=== PATIENT | female | born 1955 | race African-American/Black ===

== ENCOUNTER 2018-05-14 16:43 | Inpatient (IN) | payer MEDICAID ==
[~2018-05-14] VITALS: Ht 167.6 cm; Wt 111.1 kg
[~2018-05-14 16:43] MED LIST: BENAZEPRIL PO; IBUPROFEN PO; LEVOTHYROXINE PO
[2018-05-14] MEDS ORDERED: ONDANSETRON HCL 4MG/2ML INJ IV STA (17:05)
[2018-05-14 18:19] LABS: CLARITY URINE CLEAR (CLEAR); COLOR URINE YELLOW (YELLOW); KETONES URINE TRACE (NEGATIVE); LEUKOCYTE ESTERASE URINE TRACE (NEGATIVE); NITRITE URINE NEGATIVE (NEGATIVE); OCCULT BLOOD URINE NEGATIVE (NEGATIVE); PROTEIN URINE 1+ (NEGATIVE); SPECIFIC GRAVITY URINE 1.026 (1.005-1.030); UROBILINOGEN URINE 0.2 E.U./dL (0.2-1.0)
[2018-05-14 18:19] LABS: CHLORIDE 107 mEq/L (98-107); HEMATOCRIT. 40.2 % (36.0-48.0); HEMOGLOBIN. 12.6 g/dL (12.0-16.0); MEAN CORPUSCULAR HEMOGLOBIN 26.8 pg (28.0-32.0); MEAN CORPUSCULAR VOLUME 85.3 fL (81.0-99.0); MEAN PLATELET VOLUME 8.8 fl (7.4-10.4); PLATELET 656 x1000/uL (130-400); RED BLOOD CELL COUNT 4.71 mill/uL (4.2-5.4); RED CELL DISTRIBUTION WIDTH 14.5 % (11.6-14.6)
[2018-05-14 18:24] LABS: ETHANOL BLOOD < 10 mg/dL; PARTIAL THROMBOPLASTIN TIME 29.7 sec (23.4-31.0); PROTHROMBIN TIME 10.5 sec (9.1-11.1)
[2018-05-14 18:41] LABS: *AMPHETAMINES SCREEN URINE NEGATIVE (NEGATIVE); *BARBITURATES SCREEN URINE NEGATIVE (NEGATIVE); *BENZODIAZEPINES SCREEN URINE PRESUMTIVE POSITIVE (NEGATIVE)
[2018-05-14 18:42] LABS: *COCAINE SCREEN URINE NEGATIVE (NEGATIVE); CANNABINOID URINE SCREEN NEGATIVE (NEGATIVE); METHADONE URINE SCREEN NEGATIVE (NEGATIVE); OPIATES URINE SCREEN PRESUMTIVE POSITIVE (NEGATIVE); PHENCYCLIDINE URINE SCREEN NEGATIVE (NEGATIVE)
[2018-05-14 18:52] LABS: PLATELET ESTIMATE INCREASED
[2018-05-14] MEDS ORDERED: MECLIZINE 25MG TABLET PO ONE (19:45)
[2018-05-14] MEDS ORDERED: FENTANYL CITRATE/PF 50MCG/ML 2ML VIAL IV ONE (19:45)
[2018-05-14] MEDS ORDERED: CLONIDINE 0.1MG TABLET PO PRN (20:15)
[2018-05-14] MEDS ORDERED: ONDANSETRON HCL 4MG/2ML INJ IV PRN (20:15)
[2018-05-14] MEDS ORDERED: IOHEXOL-350 100 ML BOTTLE ONE (22:08)
[2018-05-14] MEDS ORDERED: CEFTRIAXONE 1 G PREMIX 50 ML IV ONE (22:15)
[2018-05-15 00:19] VITALS: BP 149/68
[2018-05-15] MEDS ORDERED: MECLIZINE 25MG TABLET PO PRN ×2 (00:25→11:30)
[2018-05-15] MEDS ORDERED: ASPI-986 PO (00:51)
[2018-05-15] MEDS ORDERED: DIAZ10TA PO (00:53)
[2018-05-15] MEDS ORDERED: HYDR-4009 PO (00:55)
[2018-05-15] MEDS ORDERED: SUMATRIPTAN SUCCINATE 6MG/0.5ML VIAL SUBCUT SCH (02:00)
[2018-05-15 04:00] VITALS: BP 134/69
[2018-05-15] MEDS ORDERED: LEVOTHYROXINE SODIUM 50MCG TABLET PO SCH (07:20)
[2018-05-15 08:00] VITALS: BP 127/69
[2018-05-15] MEDS: ACETAMINOPHEN 325MG TABLET PO PRN ×2 (08:10→15:07)
[2018-05-15] MEDS ORDERED: AMLODIPINE 5MG TABLET PO SCH (09:00)
[2018-05-15 12:00] VITALS: BP 127/67
[2018-05-15] MEDS ORDERED: GUAIFENESIN-DM 200MG-20MG/10ML UDC PO PRN (13:15)
[2018-05-15 15:21] VITALS: BP 127/67
[2018-05-15] MEDS ORDERED: FLUTICASONE PROPIONATE 50MCG/SPRAY BOTTLE BOTHNSTRLS SCH (21:00)
[2018-05-15] MEDS ORDERED: GUAIFENESIN 600MG ER TABLET PO SCH (21:00)
== END 2018-05-15 16:48 | disposition home or self-care (01) | DRG 111 ==
LOC: ER 16:43 → EDBEDREQ 19:41 → 6WST 19:59 → EDBEDREQ 20:02 → ENRESERV 23:00
PROVIDERS: ADMIT Internal Medicine; ATTEND Internal Medicine
DX: H81.10 Benign paroxysmal vertigo, unspecified ear (principal); G90.8 Other disorders of autonomic nervous system; E03.9 Hypothyroidism, unspecified; E78.00 Pure hypercholesterolemia, unspecified; I10 Essential (primary) hypertension; K21.9 Gastro-esophageal reflux disease without esophagitis; N39.0 Urinary tract infection, site not specified; Z86.73 Personal history of transient ischemic attack (TIA), and cerebral infarction without residual deficits; Z86.79 Personal history of other diseases of the circulatory system; R26.9 Unspecified abnormalities of gait and mobility
CPT/HCPCS: 36415; 70496; 71045; 80305; 83735; 83880; 84484; 86850; 86870; 86900; 93005; 93970; 96365; 96375; 97162; 99291; G0482; J0696; J2405; J3030; Q9967

== ENCOUNTER 2018-10-16 05:50 | Emergency (ER) | payer MEDICAID ==
[~2018-10-16] VITALS: Ht 170.2 cm; Wt 104.0 kg
[~2018-10-16 05:50] MED LIST changes: +ASPI-986 PO; +DIAZ10TA PO; +HYDR-4009 PO
[2018-10-16] MEDS ORDERED: ASPIRIN 81MG TABLET PO ONE (07:00)
[2018-10-16 07:27] LABS: BASOPHILS % 2.2 % (0.0-2.0); EOSINOPHILS % 6.7 % (0.0-5.0); HEMATOCRIT. 36.8 % (36.0-48.0); HEMOGLOBIN. 11.9 g/dL (12.0-16.0); MEAN CORPUSCULAR HEMOGLOBIN 26.6 pg (28.0-32.0); MEAN CORPUSCULAR VOLUME 82.6 fL (81.0-99.0); MEAN PLATELET VOLUME 8.3 fl (7.4-10.4); MONOCYTES % 13.8 % (2.0-8.0); NEUTROPHILS % 42.3 % (40.0-76.0); PLATELET 527 x1000/uL (130-400); RED BLOOD CELL COUNT 4.46 mill/uL (4.2-5.4); RED CELL DISTRIBUTION WIDTH 15.3 % (11.6-14.6)
[2018-10-16 07:31] LABS: CHLORIDE 112 mEq/L (98-107)
[2018-10-16 07:33] LABS: PROTHROMBIN TIME 10.4 sec (9.6-11.0)
[2018-10-16 11:01] VITALS: BP 158/93
== END 2018-10-16 11:06 | disposition home or self-care (01) ==
LOC: ER 05:50
DX: M79.605 Pain in left leg (principal); M79.604 Pain in right leg; R07.89 Other chest pain; R51 Headache; R05 Cough; I10 Essential (primary) hypertension
CPT/HCPCS: 36415; 71045; 83880; 84484; 93005; 93970; 99284

== ENCOUNTER 2018-12-16 00:12 | Emergency (ER) | payer MEDICAID ==
[~2018-12-16] VITALS: Ht 165.1 cm; Wt 96.0 kg
[2018-12-16] MEDS ORDERED: SODIUM CHLORIDE 0.9% 1,000 ML IV ONE (01:42)
[2018-12-16] MEDS ORDERED: DIPHENHYDRAMINE 50MG/ML VIAL IV ONE (01:45)
[2018-12-16] MEDS ORDERED: METOCLOPRAMIDE HCL 10MG/2ML VIAL IV ONE (01:45)
[2018-12-16 02:37] LABS: BASOPHILS % 1.2 % (0.0-2.0); EOSINOPHILS % 6.7 % (0.0-5.0); HEMATOCRIT. 43.4 % (36.0-48.0); HEMOGLOBIN. 13.8 g/dL (12.0-16.0); LYMPHOCYTES % 22.1 % (20.0-50.0); MEAN CORPUSCULAR HEMOGLOBIN 27.1 pg (28.0-32.0); MEAN CORPUSCULAR VOLUME 85.4 fL (81.0-99.0); MEAN PLATELET VOLUME 8.9 fl (7.4-10.4); MONOCYTES % 10.2 % (2.0-8.0); NEUTROPHILS % 59.8 % (40.0-76.0); PLATELET 475 x1000/uL (130-400); RED BLOOD CELL COUNT 5.08 mill/uL (4.2-5.4); RED CELL DISTRIBUTION WIDTH 14.5 % (11.6-14.6)
[2018-12-16 02:40] LABS: CHLORIDE 112 mEq/L (98-107)
[2018-12-16 02:42] LABS: PROTHROMBIN TIME 10.1 sec (9.6-11.0)
[2018-12-16] MEDS ORDERED: IOHEXOL-350 100 ML BOTTLE ONE (03:48)
[2018-12-16] MEDS ORDERED: ONDANSETRON 4MG ODT PO ONE (06:45)
[2018-12-16 06:48] VITALS: BP 145/80
== END 2018-12-16 06:51 | disposition home or self-care (01) ==
LOC: ER 00:12
DX: R51 Headache (principal); R42 Dizziness and giddiness; E05.90 Thyrotoxicosis, unspecified without thyrotoxic crisis or storm; Z86.79 Personal history of other diseases of the circulatory system; E78.00 Pure hypercholesterolemia, unspecified; Z79.899 Other long term (current) drug therapy
CPT/HCPCS: 36415; 70450; 70496; 80053; 85025; 85610; 96361; 96374; 96375; 99284; J1200; J2765; J7030; Q0162; Q9967; Z7610

== ENCOUNTER 2019-04-08 14:32 | Emergency (ER) | payer MEDICAID ==
[~2019-04-08] VITALS: Ht 170.2 cm; Wt 105.0 kg
[2019-04-08] MEDS ORDERED: SODIUM CHLORIDE 0.9% 1,000 ML IV ONE (15:51)
[2019-04-08 16:40] LABS: EOSINOPHILS % 7.9 % (0.0-5.0); HEMATOCRIT. 37.6 % (36.0-48.0); HEMOGLOBIN. 12.4 g/dL (12.0-16.0); MEAN CORPUSCULAR HEMOGLOBIN 27.5 pg (28.0-32.0); MEAN CORPUSCULAR VOLUME 83.5 fL (81.0-99.0); MEAN PLATELET VOLUME 8.5 fl (7.4-10.4); MONOCYTES % 12.8 % (2.0-8.0); NEUTROPHILS % 52.3 % (40.0-76.0); PLATELET 556 x1000/uL (130-400); RED CELL DISTRIBUTION WIDTH 14.4 % (11.6-14.6)
[2019-04-08 16:44] LABS: PROTHROMBIN TIME 10.2 sec (9.6-11.0)
[2019-04-08 19:49] VITALS: BP 155/88
[2019-04-08 21:17] LABS: CHLORIDE 106 mEq/L (98-107)
== END 2019-04-08 19:50 | disposition home or self-care (01) ==
LOC: ER 14:32
DX: R51 Headache (principal); I10 Essential (primary) hypertension; E78.00 Pure hypercholesterolemia, unspecified; E05.90 Thyrotoxicosis, unspecified without thyrotoxic crisis or storm; I72.9 Aneurysm of unspecified site; Z79.899 Other long term (current) drug therapy; Z98.890 Other specified postprocedural states; Z96.659 Presence of unspecified artificial knee joint
CPT/HCPCS: 36415; 70496; 80053; 85025; 85610; 96360; 96361; 99284; J7030

== ENCOUNTER 2019-06-07 02:11 | Emergency (ER) | payer MEDICAID ==
[~2019-06-07] VITALS: Ht 167.6 cm; Wt 111.0 kg
[2019-06-07 03:57] LABS: HEMOGLOBIN. 12.3 g/dL (12.0-16.0); MEAN CORPUSCULAR HEMOGLOBIN 27.1 pg (28.0-32.0); MEAN CORPUSCULAR VOLUME 83.8 fL (81.0-99.0); MEAN PLATELET VOLUME 8.4 fl (7.4-10.4); PLATELET 478 x1000/uL (130-400); RED BLOOD CELL COUNT 4.53 mill/uL (4.2-5.4)
[2019-06-07 04:02] LABS: CHLORIDE 109 mEq/L (98-107)
[2019-06-07] MEDS ORDERED: ALBUTEROL (0.083%) 2.5MG/3ML NEB HHN STA (04:15)
[2019-06-07] MEDS ORDERED: IPRATROPIUM BROMIDE (0.02%) 0.5MG/2.5ML NEB HHN STA (04:15)
[2019-06-07 07:03] VITALS: BP 135/69
[2019-06-07 07:17] LABS: ATYPICAL LYMPHOCYTES 3; PLATELET ESTIMATE INCREASED
== END 2019-06-07 07:04 | disposition home or self-care (01) ==
LOC: ER 02:11
DX: J06.9 Acute upper respiratory infection, unspecified (principal); J01.90 Acute sinusitis, unspecified; B97.89 Other viral agents as the cause of diseases classified elsewhere; I10 Essential (primary) hypertension; Z96.659 Presence of unspecified artificial knee joint; Z79.82 Long term (current) use of aspirin; Z79.899 Other long term (current) drug therapy
CPT/HCPCS: 36415; 71045; 80053; 83880; 84484; 85025; 87070; 87430; 87804; 93005; 94640; 99284; J7611; Z7610

== ENCOUNTER 2019-07-10 01:19 | Emergency (ER) | payer MEDICAID ==
[~2019-07-10] VITALS: Ht 167.6 cm; Wt 65.0 kg
[2019-07-10 04:37] LABS: BASOPHILS % 2.6 % (0.0-2.0); EOSINOPHILS % 8.7 % (0.0-5.0); HEMATOCRIT. 38.5 % (36.0-48.0); HEMOGLOBIN. 12.5 g/dL (12.0-16.0); LYMPHOCYTES % 37.4 % (20.0-50.0); MEAN CORPUSCULAR HEMOGLOBIN 27.6 pg (28.0-32.0); MEAN CORPUSCULAR VOLUME 84.9 fL (81.0-99.0); MEAN PLATELET VOLUME 8.7 fl (7.4-10.4); MONOCYTES % 12.8 % (2.0-8.0); NEUTROPHILS % 38.5 % (40.0-76.0); PLATELET 515 x1000/uL (130-400); RED BLOOD CELL COUNT 4.53 mill/uL (4.2-5.4); RED CELL DISTRIBUTION WIDTH 14.7 % (11.6-14.6)
[2019-07-10 05:27] LABS: CHLORIDE 108 mEq/L (98-107)
[2019-07-10] MEDS ORDERED: ACETAMINOPHEN 325MG TABLET PO ONE (05:30)
[2019-07-10 07:22] LABS: CLARITY URINE CLEAR (CLEAR); COLOR URINE YELLOW (YELLOW); KETONES URINE NEGATIVE (NEGATIVE); LEUKOCYTE ESTERASE URINE NEGATIVE (NEGATIVE); NITRITE URINE NEGATIVE (NEGATIVE); OCCULT BLOOD URINE NEGATIVE (NEGATIVE); PROTEIN URINE NEGATIVE (NEGATIVE); SPECIFIC GRAVITY URINE 1.023 (1.005-1.030); UROBILINOGEN URINE 0.2 E.U./dL (0.2-1.0)
[2019-07-10 07:51] VITALS: BP 147/81
== END 2019-07-10 07:55 | disposition home or self-care (01) ==
LOC: ER 01:19
DX: M79.605 Pain in left leg (principal); M79.604 Pain in right leg; E78.00 Pure hypercholesterolemia, unspecified; I10 Essential (primary) hypertension; Z98.890 Other specified postprocedural states; E05.90 Thyrotoxicosis, unspecified without thyrotoxic crisis or storm; I82.409 Acute embolism and thrombosis of unspecified deep veins of unspecified lower extremity; Z96.659 Presence of unspecified artificial knee joint; Z79.899 Other long term (current) drug therapy
CPT/HCPCS: 36415; 80053; 81003; 83880; 84484; 85025; 93005; 99284

== ENCOUNTER 2020-01-17 05:20 | Emergency (ER) | payer MEDICAID ==
[~2020-01-17] VITALS: Ht 170.2 cm; Wt 110.0 kg
[2020-01-17] MEDS ORDERED: IBUPROFEN 600MG TABLET PO ONE (06:45)
[2020-01-17] MEDS ORDERED: HYDROCODONE/ACETAMINOPHEN 5/325MG TABLET PO ONE (06:45)
[2020-01-17] MEDS ORDERED: ACETAMINOPHEN 325MG TABLET PO ONE (06:45)
[2020-01-17 06:57] VITALS: BP 141/77
== END 2020-01-17 06:57 | disposition home or self-care (01) ==
LOC: ER 05:20
DX: M79.18 Myalgia, other site (principal); E78.00 Pure hypercholesterolemia, unspecified; I10 Essential (primary) hypertension; Z98.890 Other specified postprocedural states; Z79.899 Other long term (current) drug therapy
CPT/HCPCS: 93005; 99283

== ENCOUNTER 2020-01-20 20:44 | Emergency (ER) | payer MEDICAID ==
[~2020-01-20] VITALS: Ht 170.2 cm; Wt 110.0 kg
[2020-01-21 00:17] VITALS: BP 134/73
== END 2020-01-21 00:33 | disposition home or self-care (01) ==
LOC: ER 20:44
DX: M54.5 Low back pain (principal); M60.9 Myositis, unspecified; I10 Essential (primary) hypertension; E07.9 Disorder of thyroid, unspecified; Z98.890 Other specified postprocedural states
CPT/HCPCS: 72100; 99283

== ENCOUNTER 2020-04-12 03:24 | Inpatient (IN) | payer MEDICAID, OTHER ==
[~2020-04-12] VITALS: Ht 170.2 cm; Wt 114.3 kg
[2020-04-12 05:39] LABS: HEMATOCRIT. 35.6 % (36.0-48.0); HEMOGLOBIN. 11.6 g/dL (12.0-16.0); MEAN CORPUSCULAR HEMOGLOBIN 27.1 pg (28.0-32.0); MEAN CORPUSCULAR VOLUME 82.8 fL (81.0-99.0); MEAN PLATELET VOLUME 8.6 fl (7.4-10.4); PLATELET 482 x1000/uL (130-400); RED BLOOD CELL COUNT 4.29 mill/uL (4.2-5.4); RED CELL DISTRIBUTION WIDTH 14.7 % (11.6-14.6)
[2020-04-12 05:45] LABS: CHLORIDE 110 mEq/L (98-107)
[2020-04-12 07:06] LABS: PLATELET ESTIMATE INCREASED
[2020-04-12] MEDS ORDERED: ALBUTEROL (0.083%) 2.5MG/3ML NEB HHN NR (07:30)
[2020-04-12] MEDS ORDERED: IPRATROPIUM BROMIDE (0.02%) 0.5MG/2.5ML NEB HHN NR (07:30)
[2020-04-12] MEDS ORDERED: ASPIRIN 325MG EC TABLET PO ONE (09:00)
[2020-04-12 11:41] LABS: D-DIMER 16.12 mg/L FEU (<0.50); PARTIAL THROMBOPLASTIN TIME 32.4 sec (23.4-31.0)
[2020-04-12] MEDS ORDERED: AZITHROMYCIN 500 MG in DEXT 5% WATER 250 ML IV ONE (13:30)
[2020-04-12] MEDS ORDERED: ENOXAPARIN 80MG/0.8ML SYR SUBCUT ONE (13:30)
[2020-04-12] MEDS ORDERED: CEFTRIAXONE 1 G PREMIX 50 ML IV ONE (13:30)
[2020-04-12] MEDS ORDERED: LORAZEPAM 0.5MG TABLET PO PRN (14:30)
[2020-04-12] MEDS ORDERED: ACETAMINOPHEN 325MG TABLET PO PRN ×2 (14:30)
[2020-04-12] MEDS ORDERED: HYDROCODONE/ACETAMINOPHEN 5/325MG TABLET PO PRN (14:30)
[2020-04-12] MEDS ORDERED: CLONIDINE 0.1MG TABLET PO PRN (14:30)
[2020-04-12] MEDS ORDERED: ONDANSETRON HCL 4MG/2ML INJ IV PRN (14:30)
[2020-04-12] MEDS ORDERED: ASPIRIN 81MG TABLET PO SCH (14:30)
[2020-04-12 14:50] LABS: PROTHROMBIN TIME 10.9 sec (9.6-11.0)
[2020-04-12 14:57] LABS: TOTAL IRON BINDING CAPACITY 269 ug/dL (250-450)
[2020-04-12] MEDS ORDERED: CEFTRIAXONE 1 G PREMIX 50 ML IV SCH (15:00)
[2020-04-12 15:11] LABS: FERRITIN 221 ng/mL (10-291)
[2020-04-12 15:23] LABS: VITAMIN B12 SERUM 1362 pg/mL (211-911)
[2020-04-12] MEDS ORDERED: IOHEXOL-350 100 ML BOTTLE ONE (15:32)
[2020-04-12 15:39] LABS: FOLIC ACID (FOLATE) SERUM >20 ng/mL ng/mL (>5.38)
[2020-04-12 22:06] LABS: ETHANOL BLOOD < 10 mg/dL
[2020-04-12 22:09] LABS: LDL CHOLESTEROL 97 mg/dL (5-100)
[2020-04-12 22:10] LABS: HDL CHOLESTEROL 56 mg/dL (40-59)
[2020-04-12 22:12] LABS: T4 FREE 0.99 ng/dL (0.76-1.46)
[2020-04-12 22:30] VITALS: BP 124/70
[2020-04-13] VITALS (7 sets, daily range): BP systolic 122–148; BP diastolic 70–89
[2020-04-13] MEDS: ENOXAPARIN 120MG/0.8ML SYR SUBCUT SCH ×2 (04:09→15:11)
[2020-04-13 06:38] LABS: BASOPHILS % 1.5 % (0.0-2.0); EOSINOPHILS % 2.9 % (0.0-5.0); LYMPHOCYTES % 37.2 % (20.0-50.0); MEAN CORPUSCULAR HEMOGLOBIN 26.6 pg (28.0-32.0); MEAN CORPUSCULAR VOLUME 82.4 fL (81.0-99.0); MEAN PLATELET VOLUME 8.9 fl (7.4-10.4); MONOCYTES % 13.7 % (2.0-8.0); NEUTROPHILS % 44.7 % (40.0-76.0); PLATELET 505 x1000/uL (130-400); RED BLOOD CELL COUNT 3.76 mill/uL (4.2-5.4); RED CELL DISTRIBUTION WIDTH 14.8 % (11.6-14.6)
[2020-04-13] MEDS ORDERED: LEVOTHYROXINE SODIUM 88MCG TABLET PO SCH (06:40)
[2020-04-13 07:32] LABS: CHLORIDE 111 mEq/L (98-107)
[2020-04-13] MEDS: LEVOTHYROXINE SODIUM 88MCG TABLET PO SCH ×2 (08:30→10:20)
[2020-04-13] MEDS ORDERED: ASPIRIN 81MG TABLET PO SCH (09:00)
[2020-04-13] MEDS ORDERED: INFLUENZA VACCINE 05/PF 0.5 ML VIAL IM ONE (12:00)
[2020-04-13] MEDS ORDERED: PNEUMOCOCCAL 23-VAL P-SAC VAC 0.5 ML IM ONE (12:00)
[2020-04-13] MEDS ORDERED: AZITHROMYCIN 500 MG in DEXT 5% WATER 250 ML IV SCH (13:30)
[2020-04-13] MEDS: CEFTRIAXONE 1,000 MG in DEXTROSE 5% WATER 50 ML IV SCH (14:49)
[2020-04-13] MEDS: AZITHROMYCIN 500MG in DEXTROSE 5% WATER 250ML IV SCH (14:54)
[2020-04-13] MEDS ORDERED: CEFTRIAXONE 1 G PREMIX 50 ML IV SCH (15:00)
[2020-04-13 21:20] LABS: HEMATOCRIT 35.1 % (36.0-48.0); HEMOGLOBIN 11.4 g/dL (12.0-16.0); MEAN CORPUSCULAR HEMOGLOBIN 26.9 pg (28.0-32.0); MEAN CORPUSCULAR VOLUME 82.8 fL (81.0-99.0); PLATELET 454 x1000/uL (130-400); RED BLOOD CELL COUNT 4.24 mill/uL (4.2-5.4); RED CELL DISTRIBUTION WIDTH 15.1 % (11.6-14.6)
[2020-04-14 00:28] VITALS: BP 149/90
[2020-04-14] MEDS: ENOXAPARIN 120MG/0.8ML SYR SUBCUT SCH ×2 (03:49→15:03)
[2020-04-14 04:00] VITALS: BP 138/71
[2020-04-14] MEDS: LEVOTHYROXINE SODIUM 88MCG TABLET PO SCH (05:42)
[2020-04-14 06:51] LABS: HEMATOCRIT. 37.5 % (36.0-48.0); MEAN CORPUSCULAR HEMOGLOBIN 26.4 pg (28.0-32.0); MEAN CORPUSCULAR VOLUME 82.9 fL (81.0-99.0); MEAN PLATELET VOLUME 8.3 fl (7.4-10.4); PLATELET 457 x1000/uL (130-400); RED BLOOD CELL COUNT 4.53 mill/uL (4.2-5.4)
[2020-04-14 07:14] LABS: CHLORIDE 108 mEq/L (98-107)
[2020-04-14 08:00] VITALS: BP 138/74
[2020-04-14] MEDS: THIAMINE HCL 100MG TABLET PO SCH ×2 (08:26→16:14)
[2020-04-14] MEDS: ASCORBIC ACID 500 MG TABLET PO SCH ×2 (08:27→16:14)
[2020-04-14] MEDS ORDERED: ZINC SULFATE 220 MG ( 50 ) CAPSULE PO SCH (09:00)
[2020-04-14] MEDS ORDERED: GUAIFENESIN-DM 200MG-20MG/10ML UDC PO PRN (10:15)
[2020-04-14 12:00] VITALS: BP 146/79
[2020-04-14] MEDS ORDERED: APIX5TAB MT (12:28)
[2020-04-14] MEDS ORDERED: AZIT250T12 PO (12:29)
[2020-04-14 13:15] LABS: PLATELET ESTIMATE INCREASED
[2020-04-14] MEDS: AZITHROMYCIN 500MG in DEXTROSE 5% WATER 250ML IV SCH (14:05)
[2020-04-14] MEDS: CEFTRIAXONE 1,000 MG in DEXTROSE 5% WATER 50 ML IV SCH (14:52)
[2020-04-14 15:33] VITALS: BP 148/91
== END 2020-04-14 17:13 | disposition home or self-care (01) | DRG 720 ==
LOC: ER 04:25 → 7EST 10:36 → EDBEDREQ 10:38 → ENRESERV 11:24 → CANRESERV 11:24 → ENRESERV 21:19
PROVIDERS: ADMIT Internal Medicine; ATTEND Internal Medicine
PROC: 3E02340 Introduction of Influenza Vaccine into Muscle, Percutaneous Approach (ICD-10-PCS; principal; 2020-04-13)
PROC: 3E0234Z Introduction of Serum, Toxoid and Vaccine into Muscle, Percutaneous Approach (ICD-10-PCS; 2020-04-13)
DX: A41.89 Other specified sepsis (principal); U07.1 COVID-19; D64.9 Anemia, unspecified; E03.9 Hypothyroidism, unspecified; E66.01 Morbid (severe) obesity due to excess calories; E78.00 Pure hypercholesterolemia, unspecified; I26.94 Multiple subsegmental thrombotic pulmonary emboli without acute cor pulmonale; Z60.2 Problems related to living alone; R26.9 Unspecified abnormalities of gait and mobility; J15.9 Unspecified bacterial pneumonia; E78.5 Hyperlipidemia, unspecified; J96.01 Acute respiratory failure with hypoxia; G92 Toxic encephalopathy; I10 Essential (primary) hypertension; J12.89 Other viral pneumonia; J44.0 Chronic obstructive pulmonary disease with (acute) lower respiratory infection; K21.9 Gastro-esophageal reflux disease without esophagitis; Z86.79 Personal history of other diseases of the circulatory system; Z79.01 Long term (current) use of anticoagulants; Z79.82 Long term (current) use of aspirin; Z79.899 Other long term (current) drug therapy
CPT/HCPCS: 36415; 71045; 71275; 80048; 80053; 80061; 80320; 82140; 82607; 82728; 82746; 83036; 83540; 83550; 83605; 83615; 83880; 84132; 84145; 84439; 84443; 84481; 84484; 85025; 85027; 85379; 87635; 90686; 90732; 93005; 99285; J0456; J0696; J1650; J7060; Q9967; G0480

== ENCOUNTER 2020-06-29 17:22 | Emergency (ER) | payer OTHER ==
[~2020-06-29] VITALS: Ht 167.6 cm; Wt 118.0 kg
[~2020-06-29 17:22] MED LIST changes: +APIX5TAB MT; +AZIT250T12 PO
[2020-06-29] MEDS ORDERED: HYDROCODONE/ACETAMINOPHEN 5/325MG TABLET PO STA (17:50)
[2020-06-29 18:14] LABS: HEMATOCRIT. 37.9 % (36.0-48.0); HEMOGLOBIN. 12.3 g/dL (12.0-16.0); MEAN CORPUSCULAR HEMOGLOBIN 27.2 pg (28.0-32.0); MEAN CORPUSCULAR VOLUME 83.9 fL (81.0-99.0); MEAN PLATELET VOLUME 8.3 fl (7.4-10.4); PLATELET 496 x1000/uL (130-400); RED BLOOD CELL COUNT 4.52 mill/uL (4.2-5.4)
[2020-06-29 18:21] LABS: PROTHROMBIN TIME 10.3 sec (9.6-11.0)
[2020-06-29 18:25] LABS: CHLORIDE 108 mEq/L (98-107)
[2020-06-29 18:35] VITALS: BP 111/66
[2020-06-29 18:41] LABS: PLATELET ESTIMATE INCREASED
== END 2020-06-29 20:10 | disposition home or self-care (01) ==
LOC: ER 17:27
DX: R51.9 Headache, unspecified (principal); W22.8XXA Striking against or struck by other objects, initial encounter; G89.11 Acute pain due to trauma; I10 Essential (primary) hypertension; Y93.89 Activity, other specified; Y92.89 Other specified places as the place of occurrence of the external cause; E78.00 Pure hypercholesterolemia, unspecified; G40.909 Epilepsy, unspecified, not intractable, without status epilepticus
CPT/HCPCS: 36415; 80053; 85025; 93005; 99285

== ENCOUNTER 2021-05-21 22:40 | Emergency (ER) | payer MEDICAID, OTHER ==
[~2021-05-21] VITALS: Ht 167.6 cm; Wt 118.0 kg
[2021-05-22] MEDS ORDERED: KETOROLAC 60MG/2ML VIAL IM ONE (01:45)
[2021-05-22 03:37] LABS: CHLORIDE 111 mEq/L (98-107)
[2021-05-22 04:04] VITALS: BP 143/79
== END 2021-05-22 04:07 | disposition home or self-care (01) ==
LOC: ER 22:40
DX: M54.59 Other low back pain (principal); R25.2 Cramp and spasm
CPT/HCPCS: 36415; 72100; 80048; 93970; 99285; J1885

== ENCOUNTER 2021-08-10 15:03 | Inpatient (IN) | payer MEDICAID, OTHER ==
[~2021-08-10] VITALS: Ht 167.6 cm; Wt 121.1 kg
[2021-08-10] MEDS ORDERED: ASPIRIN 81MG TABLET PO ONE (15:30)
[2021-08-10] MEDS ORDERED: NITROGLYCERIN 0.4MG TABLET SL SL PRN (15:30)
[2021-08-10 15:54] LABS: BASOPHILS % 1.2 % (0.0-2.0); EOSINOPHILS % 7.2 % (0.0-5.0); HEMATOCRIT. 41.3 % (36.0-48.0); HEMOGLOBIN. 13.5 g/dL (12.0-16.0); LYMPHOCYTES % 32.4 % (20.0-50.0); MEAN CORPUSCULAR HEMOGLOBIN 26.8 pg (28.0-32.0); MEAN CORPUSCULAR VOLUME 81.9 fL (81.0-99.0); MEAN PLATELET VOLUME 8.7 fl (7.4-10.4); MONOCYTES % 11.3 % (2.0-8.0); NEUTROPHILS % 47.9 % (40.0-76.0); PLATELET 619 x1000/uL (130-400); RED BLOOD CELL COUNT 5.05 mill/uL (4.2-5.4); RED CELL DISTRIBUTION WIDTH 14.8 % (11.6-14.6)
[2021-08-10 15:57] LABS: CHLORIDE 105 mEq/L (98-107)
[2021-08-10 17:23] LABS: PARTIAL THROMBOPLASTIN TIME 28.9 sec (23.4-31.0); PROTHROMBIN TIME 10.7 sec (9.6-11.0)
[2021-08-10] MEDS ORDERED: IOHEXOL-350 100 ML BOTTLE ONE (18:06)
[2021-08-10 18:31] LABS: CLARITY URINE CLEAR (CLEAR); COLOR URINE YELLOW (YELLOW); KETONES URINE TRACE (NEGATIVE); LEUKOCYTE ESTERASE URINE NEGATIVE (NEGATIVE); NITRITE URINE NEGATIVE (NEGATIVE); OCCULT BLOOD URINE NEGATIVE (NEGATIVE); PROTEIN URINE NEGATIVE (NEGATIVE); SPECIFIC GRAVITY URINE 1.021 (1.005-1.030)
[2021-08-10 23:41] VITALS: BP 135/56
[2021-08-11] MEDS: DIAZEPAM 5 MG TABLET PO SCH ×2 (00:56→17:32)
[2021-08-11] MEDS: LEVOTHYROXINE SODIUM 88MCG TABLET PO SCH (05:59)
[2021-08-11 08:00] VITALS: BP 142/73
[2021-08-11] MEDS: ASPIRIN 81MG TABLET PO SCH (08:55)
[2021-08-11] MEDS: BENAZEPRIL 10MG TABLET PO SCH (08:55)
[2021-08-11 12:00] VITALS: BP 128/72
[2021-08-11] MEDS ORDERED: ONDANSETRON HCL 4MG/2ML INJ IV PRN (15:00)
[2021-08-11] MEDS ORDERED: ACETAMINOPHEN 325MG TABLET PO PRN (15:00)
[2021-08-11 16:00] VITALS: BP 125/76
[2021-08-11 20:00] VITALS: BP 122/70
[2021-08-12] VITALS: BP 149/77
[2021-08-12 04:00] VITALS: BP 129/75
[2021-08-12] MEDS: LEVOTHYROXINE SODIUM 88MCG TABLET PO SCH (05:57)
[2021-08-12 08:00] VITALS: BP 140/85
[2021-08-12] MEDS: ASPIRIN 81MG TABLET PO SCH (08:50)
[2021-08-12] MEDS: BENAZEPRIL 10MG TABLET PO SCH (08:51)
[2021-08-12] MEDS ORDERED: IOHEXOL-350 100 ML BOTTLE ONE (08:51)
[2021-08-12 12:00] VITALS: BP 149/83
[2021-08-12 13:29] VITALS: BP 149/83
== END 2021-08-12 13:45 | disposition home or self-care (01) | DRG 203 ==
LOC: ER 15:03 → 8WST 20:10 → ENRESERV 22:18
PROVIDERS: ADMIT Internal Medicine; ATTEND Internal Medicine
DX: M94.0 Chondrocostal junction syndrome [Tietze] (principal); E66.01 Morbid (severe) obesity due to excess calories; E78.5 Hyperlipidemia, unspecified; I10 Essential (primary) hypertension; Z68.41 Body mass index [BMI] 40.0-44.9, adult; Z71.3 Dietary counseling and surveillance; Z86.79 Personal history of other diseases of the circulatory system
CPT/HCPCS: 36415; 70496; 70498; 71045; 71275; 80053; 81003; 83880; 84484; 85025; 85379; 93005; 93306; 99285; Q9967

== ENCOUNTER 2022-01-12 23:33 | Emergency (ER) | payer OTHER ==
[~2022-01-12] VITALS: Ht 167.6 cm; Wt 115.0 kg
[2022-01-13 00:02] VITALS: BP 150/73
== END 2022-01-13 02:01 | disposition left against medical advice (07) ==
LOC: ER 23:33
DX: Z53.21 Procedure and treatment not carried out due to patient leaving prior to being seen by health care provider (principal)
CPT/HCPCS: 93005; 99283

== ENCOUNTER 2022-02-18 14:01 | Inpatient (IN) | payer MEDICAID, OTHER ==
[~2022-02-18] VITALS: Ht 172.7 cm; Wt 118.2 kg
[2022-02-18 14:58] LABS: HEMATOCRIT. 37.2 % (36.0-48.0); MEAN CORPUSCULAR HEMOGLOBIN 27.7 pg (28.0-32.0); MEAN CORPUSCULAR VOLUME 85.6 fL (81.0-99.0); MEAN PLATELET VOLUME 8.4 fl (7.4-10.4); PLATELET 472 x1000/uL (130-400); RED BLOOD CELL COUNT 4.35 mill/uL (4.2-5.4); RED CELL DISTRIBUTION WIDTH 17.2 % (11.6-14.6)
[2022-02-18 15:10] LABS: CHLORIDE 106 mEq/L (98-107)
[2022-02-18] MEDS ORDERED: IOHEXOL-350 100 ML BOTTLE ONE (15:13)
[2022-02-18] MEDS ORDERED: MECLIZINE 25MG TABLET PO ONE (15:15)
[2022-02-18] MEDS ORDERED: MECLIZINE 25MG TABLET PO NR (15:15)
[2022-02-18 15:21] LABS: PLATELET ESTIMATE INCREASED
[2022-02-18 15:26] LABS: ETHANOL BLOOD < 10 mg/dL
[2022-02-18 18:38] LABS: CLARITY URINE CLEAR (CLEAR); COLOR URINE YELLOW (YELLOW); KETONES URINE NEGATIVE (NEGATIVE); LEUKOCYTE ESTERASE URINE NEGATIVE (NEGATIVE); NITRITE URINE NEGATIVE (NEGATIVE); OCCULT BLOOD URINE NEGATIVE (NEGATIVE); PH URINE 5.5 (4.5-8.0); PROTEIN URINE NEGATIVE (NEGATIVE); SPECIFIC GRAVITY URINE 1.039 (1.005-1.030); UROBILINOGEN URINE 0.2 E.U./dL (0.2-1.0)
[2022-02-18 18:51] LABS: *AMPHETAMINES SCREEN URINE NEGATIVE (NEGATIVE); *BARBITURATES SCREEN URINE NEGATIVE (NEGATIVE); *BENZODIAZEPINES SCREEN URINE PRESUMTIVE POSITIVE (NEGATIVE); *COCAINE SCREEN URINE NEGATIVE (NEGATIVE); CANNABINOID URINE SCREEN NEGATIVE (NEGATIVE); METHADONE URINE SCREEN NEGATIVE (NEGATIVE); OPIATES URINE SCREEN NEGATIVE (NEGATIVE); PHENCYCLIDINE URINE SCREEN NEGATIVE (NEGATIVE)
[2022-02-19 01:35] VITALS: BP 166/119
[2022-02-19] MEDS ORDERED: HYDROCODONE/ACETAMINOPHEN 5/325MG TABLET PO PRN (04:15)
[2022-02-19] MEDS: LEVOTHYROXINE SODIUM 88MCG TABLET PO SCH (06:24)
[2022-02-19 08:00] VITALS: BP 124/71
[2022-02-19] MEDS ORDERED: LEVOTHYROXINE 88 MCG PO SCH (09:00)
[2022-02-19] MEDS ORDERED: BENAZEPRIL 40 MG PO SCH (09:00)
[2022-02-19 09:52] LABS: BASOPHILS % 1.4 % (0.0-2.0); EOSINOPHILS % 4.7 % (0.0-5.0); HEMATOCRIT. 40.5 % (36.0-48.0); HEMOGLOBIN. 13.2 g/dL (12.0-16.0); LYMPHOCYTES % 29.5 % (20.0-50.0); MEAN CORPUSCULAR HEMOGLOBIN 28.3 pg (28.0-32.0); MEAN CORPUSCULAR VOLUME 86.7 fL (81.0-99.0); MEAN PLATELET VOLUME 8.7 fl (7.4-10.4); MONOCYTES % 5.6 % (2.0-8.0); NEUTROPHILS % 58.8 % (40.0-76.0); PLATELET 496 x1000/uL (130-400); RED BLOOD CELL COUNT 4.67 mill/uL (4.2-5.4); RED CELL DISTRIBUTION WIDTH 17.3 % (11.6-14.6)
[2022-02-19] MEDS: BENAZEPRIL 10MG TABLET PO SCH (10:26)
[2022-02-19] MEDS: APIXABAN 5 MG TABLET PO SCH ×2 (10:27→17:33)
[2022-02-19 12:00] VITALS: BP 125/89
[2022-02-19 16:00] VITALS: BP 108/78
[2022-02-19] MEDS ORDERED: HYDR500C18 PO (17:50)
[2022-02-19] MEDS ORDERED: DIAZ10TA4 PO (17:55)
[2022-02-19] MEDS ORDERED: ASPI-1497 PO (17:56)
[2022-02-19] MEDS ORDERED: ATOR20TA65 PO (17:58)
[2022-02-19] MEDS: ASPIRIN 81MG TABLET PO SCH (18:31)
[2022-02-19] MEDS: CLOPIDOGREL 75MG TABLET PO SCH (18:31)
[2022-02-19 20:00] VITALS: BP 188/97
[2022-02-19] MEDS ORDERED: CLONIDINE 0.1MG TABLET PO PRN (21:45)
[2022-02-19] MEDS: ATORVASTATIN CALCIUM 40MG TABLET PO SCH (21:46)
[2022-02-20] VITALS: BP 152/76
[2022-02-20 04:00] VITALS: BP 139/72
[2022-02-20] MEDS: LEVOTHYROXINE SODIUM 88MCG TABLET PO SCH (07:09)
[2022-02-20] MEDS: ASPIRIN 81MG TABLET PO SCH (11:25)
[2022-02-20] MEDS: CLOPIDOGREL 75MG TABLET PO SCH (11:25)
[2022-02-20] MEDS: APIXABAN 5 MG TABLET PO SCH ×2 (11:25→18:52)
[2022-02-20] MEDS: BENAZEPRIL 10MG TABLET PO SCH (11:26)
[2022-02-20 20:00] VITALS: BP 141/67
[2022-02-20] MEDS: ATORVASTATIN CALCIUM 40MG TABLET PO SCH (21:58)
[2022-02-21] VITALS: BP 121/49
[2022-02-21 04:00] VITALS: BP 135/84
[2022-02-21] MEDS: LEVOTHYROXINE SODIUM 88MCG TABLET PO SCH (06:58)
[2022-02-21 08:00] VITALS: BP 126/75
[2022-02-21] MEDS: CLOPIDOGREL 75MG TABLET PO SCH (10:59)
[2022-02-21] MEDS: APIXABAN 5 MG TABLET PO SCH (10:59)
[2022-02-21] MEDS: BENAZEPRIL 10MG TABLET PO SCH (11:00)
[2022-02-21] MEDS: ASPIRIN 81MG TABLET PO SCH (11:00)
[2022-02-21 12:00] VITALS: BP 125/72
[2022-02-21] MEDS ORDERED: ATOR20TA MT (12:08)
[2022-02-21 14:55] VITALS: BP 125/76
[2022-02-21] MEDS ORDERED: CLOP-31 MT (16:42)
[2022-02-21] MEDS ORDERED: ASPI-1406 MT (16:42)
== END 2022-02-21 15:55 | disposition home or self-care (01) | DRG 45 ==
LOC: ER 14:47 → MICUSO 02-19 01:02 → 6WST 02-19 01:45
PROVIDERS: ADMIT Internal Medicine; ATTEND Internal Medicine
DX: I63.9 Cerebral infarction, unspecified (principal); E44.1 Mild protein-calorie malnutrition; G81.94 Hemiplegia, unspecified affecting left nondominant side; R29.810 Facial weakness; E66.01 Morbid (severe) obesity due to excess calories; E03.9 Hypothyroidism, unspecified; I10 Essential (primary) hypertension; R42 Dizziness and giddiness; D72.819 Decreased white blood cell count, unspecified; E78.5 Hyperlipidemia, unspecified; Z68.39 Body mass index [BMI] 39.0-39.9, adult; Z85.118 Personal history of other malignant neoplasm of bronchus and lung; Z79.899 Other long term (current) drug therapy; Z79.01 Long term (current) use of anticoagulants; Z86.79 Personal history of other diseases of the circulatory system
CPT/HCPCS: 36415; 70496; 70498; 71045; 80053; 80061; 80305; 80320; 81003; 82607; 83036; 83880; 84443; 84484; 85025; 93005; 93306; 97116; 97162; 97166; 97535; 99291; J8597; Q9967; G0480

== ENCOUNTER 2022-08-07 20:10 | Emergency (ER) | payer OTHER ==
[~2022-08-07] VITALS: Ht 167.6 cm; Wt 82.0 kg
[~2022-08-07 20:10] MED LIST changes: -APIX5TAB MT; +ASPI-1406 MT; +ASPI-1497 PO; -ASPI-986 PO; +ATOR20TA MT; +ATOR20TA65 PO; -AZIT250T12 PO; +CLOP-31 MT; -DIAZ10TA PO; +DIAZ10TA4 PO; -HYDR-4009 PO; +HYDR500C18 PO; -IBUPROFEN PO
[2022-08-07 20:13] VITALS: BP 186/102
[2022-08-07 21:05] LABS: BASOPHILS % 0.9 % (0.0-2.0); EOSINOPHILS % 4.6 % (0.0-5.0); HEMATOCRIT. 38.5 % (36.0-48.0); HEMOGLOBIN. 12.4 g/dL (12.0-16.0); LYMPHOCYTES % 27.9 % (20.0-50.0); MEAN CORPUSCULAR HEMOGLOBIN 28.7 pg (28.0-32.0); MEAN CORPUSCULAR VOLUME 89.3 fL (81.0-99.0); MEAN PLATELET VOLUME 9.3 fl (7.4-10.4); NEUTROPHILS % 55.6 % (40.0-76.0); PLATELET 436 x1000/uL (130-400); RED BLOOD CELL COUNT 4.32 mill/uL (4.2-5.4); RED CELL DISTRIBUTION WIDTH 13.5 % (11.6-14.6)
[2022-08-07 21:11] LABS: CHLORIDE 109 mEq/L (98-107)
[2022-08-07] MEDS ORDERED: TUSSL MT (23:50)
== END 2022-08-08 00:15 | disposition home or self-care (01) ==
LOC: ER 20:10
DX: R53.83 Other fatigue (principal); Z87.898 Personal history of other specified conditions
CPT/HCPCS: 36415; 71045; 80053; 83880; 84484; 85025; 93005; 99285

== ENCOUNTER 2022-11-17 19:45 | Emergency (ER) | payer MEDICARE, MEDICAID ==
[~2022-11-17] VITALS: Ht 167.6 cm; Wt 109.0 kg
[~2022-11-17 19:45] MED LIST changes: +TUSSL MT
[2022-11-17 20:00] VITALS: BP 177/64
[2022-11-17 20:32] LABS: BASOPHILS % 0.4 % (0.0-2.0); EOSINOPHILS % 4.1 % (0.0-5.0); HEMATOCRIT. 38.8 % (36.0-48.0); HEMOGLOBIN. 12.5 g/dL (12.0-16.0); LYMPHOCYTES % 20.8 % (20.0-50.0); MEAN CORPUSCULAR VOLUME 83.5 fL (81.0-99.0); MONOCYTES % 12.1 % (2.0-8.0); NEUTROPHILS % 62.6 % (40.0-76.0); PLATELET 574 x1000/uL (130-400); RED BLOOD CELL COUNT 4.65 mill/uL (4.2-5.4); RED CELL DISTRIBUTION WIDTH 14.8 % (11.6-14.6)
[2022-11-17 20:38] LABS: CHLORIDE 112 mEq/L (98-107)
[2022-11-18 01:37] LABS: CLARITY URINE CLOUDY (CLEAR); COLOR URINE YELLOW (YELLOW); KETONES URINE NEGATIVE (NEGATIVE); NITRITE URINE NEGATIVE (NEGATIVE); OCCULT BLOOD URINE NEGATIVE (NEGATIVE); PROTEIN URINE TRACE (NEGATIVE); SPECIFIC GRAVITY URINE 1.036 (1.005-1.030)
[2022-11-18 01:38] LABS: LEUKOCYTE ESTERASE URINE TRACE (NEGATIVE)
[2022-11-18 02:25] VITALS: PULSE 66; RESP 17; TEMP 98
== END 2022-11-18 02:25 | disposition left against medical advice (07) ==
LOC: ER 19:45 → CANBEDREQ 11-18 19:11
DX: R51.9 Headache, unspecified (principal); I10 Essential (primary) hypertension; E03.9 Hypothyroidism, unspecified; Z79.899 Other long term (current) drug therapy; Z86.73 Personal history of transient ischemic attack (TIA), and cerebral infarction without residual deficits
CPT/HCPCS: 36415; 71045; 80053; 81003; 83880; 84484; 85025; 93005; 99285